=== PATIENT | male | born 1960 | race Two or more races ===

== ENCOUNTER 2017-03-12 11:46 | Emergency (ER) | payer MEDICAID ==
[2017-03-12 11:58] VITALS: BP 139/80; PULSE 93; RESP 16; TEMP 98.2; O2SAT 95
--- NOTE | 2017-03-12 12:18 | EDPHY ---
H & P Stated Complaint: Opiate witdrawl- 12 hours ago. Time Seen by Provider: 03/12/17 12:18 HPI/ROS: HPI: This is a 56-year-old male who presents with Chief Complaint: Opiate withdrawal- 12 hours ago. Location:body Quality:opiate withdrawal Duration: 12 hr Signs and Symptoms: No fever, no chills, no agitation, no muscle aches, + insomnia, + skin crawling, no abdominal cramping, no diarrhea, Timing: Acute on chronic Severity: Moderate Context: Patient is here with his long-time partner as well as family member who presents with request for treatment of symptoms of opiate withdrawal and recommendations for outpatient treatment. He has never been to drug rehabilitation in the past. He reports his last use of heroin was approximately midnight. He denies chest pain/shortness of breath/abdominal pain /headache. He does report some mild nausea. Has a history of GERD and H pylori infection and has not been taking his "meds for some time" denies suicidal ideation/homicidal ideation/hallucinations. Patient reports that he has been taking opiate medications for approximately 15 years. He admits to using pill forms of opiates as well as heroin. Denies any other illicit drug use. Modifying Factors: None Comment: ROS: see HPI Constitutional: No fever, no chills, no weight loss Eyes: No blurred vision Respiratory: No shortness of breath, no cough Cardiovascular: No chest pain Gastrointestinal: No nausea, no vomiting, no diarrhea Genitourinary: No dysuria Extremities: No myalgias Neurologic: No weakness, no numbness Skin: No rashes Hematologic: No bruising, no bleeding MEDICAL/SURGICAL/SOCIAL HISTORY: Medical history: Narcotic abuse, TB-32 years ago. Surgical history: Denies Social history: Unemployed. CONSTITUTIONAL: Untidy, intoxicated, adult male, awake and alert, no obvious distress HEENT: Atraumatic and normocephalic, PERRL, EOMI. Tympanic membranes clear. Oropharynx clear, no exudate and moist pink mucosa. Airway patent. No lymphadenopathy. No meningismus. Cardiovascular: Normal S1/S2, regular rate, regular rhythm, without murmur rub or gallop. PULMONARY/CHEST: Symmetrical and nontender. Clear to auscultation bilaterally. Good air movement. No accessory muscle usage. ABDOMEN: Soft, nondistended, nontender, no rebound, no guarding, no peritoneal signs, no masses or organomegaly. No CVAT. EXTREMITIES: 2/2 pulses, strength 5/5, no deformities, no clubbing, no cyanosis or edema. NEUROLOGICAL: no focal neuro deficits. GCS 15. SKIN: Warm and dry, no erythema. no rash. Good capillary refill. Source: Patient, Family Exam Limitations: No limitations - Personal History Current Tetanus/Diphtheria Vaccine: Yes Current Tetanus Diphtheria and Acellular Pertussis (TDAP): Yes Tetanus Vaccine Date: 2015 - Medical/Surgical History Hx Asthma: No Hx Chronic Respiratory Disease: No Hx Diabetes: No Hx Cardiac Disease: No Hx Renal Disease: No Hx Cirrhosis: No Hx Alcoholism: No Hx HIV/AIDS: No Hx Splenectomy or Spleen Trauma: No Other PMH: Narcotic abuse, TB-32 years ago. - Social History Smoking Status: Heavy smoker Constitutional: Initial Vital Signs Temperature (C) 36.8 C 03/12/17 11:54 Heart Rate 93 03/12/17 11:54 Respiratory Rate 16 03/12/17 11:54 Blood Pressure 139/80 H 03/12/17 11:54 O2 Sat (%) 95 03/12/17 11:54 O2 Delivery Mode Room Air Allergies/Adverse Reactions: No Known Allergies Allergy (Verified 03/12/17 11:53) Home Medications: Medication Instructions Recorded NK [No Known Home Meds] 03/12/17 Medical Decision Making ED Course/Re-evaluation: Given p.o. Pepcid and p.o. Zofran Vital signs reviewed and stable upon arrival. 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 This patient was seen under the supervision of my secondary supervising physician. I evaluated care for this patient independently. Differential Diagnosis: Differential diagnosis includes but is not limited to opiate abuse, opiate withdrawal, chronic pain syndrome, depression. - Data Points Medications Given: Discontinued Medications Famotidine (Pepcid) 20 mg PO EDNOW ONE Stop: 03/12/17 12:32 Last Admin: 03/12/17 12:37 Dose: 20 mg Ondansetron HCl (Zofran Odt) 4 mg PO EDNOW ONE Stop: 03/12/17 12:32 Last Admin: 03/12/17 12:37 Dose: 4 mg Departure - Departure Disposition: Against Medical Advice Clinical Impression: Opiate withdrawal, Opiate abuse, continuous Condition: Fair Instructions: Narcotic Abuse (ED) Referrals: [facility] 24 Hours [Outside] - As per Instructions
[2017-03-12] MEDS ORDERED: ONDANSETRON DISINTEGRATING 4 MG TAB ONE (12:31)
[2017-03-12] MEDS ORDERED: FAMOTIDINE 20 MG TAB PO ONE (12:31)
[2017-03-12] MEDS ORDERED: ONDANSETRON DISINTEGRATING 4 MG TAB PO ONE (12:31)
== END 2017-03-12 13:19 | disposition left against medical advice (07) ==
DX: F11.23 Opioid dependence with withdrawal (principal); F17.200 Nicotine dependence, unspecified, uncomplicated